=== PATIENT | female | born 2000 | race Caucasian/White ===

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

== ENCOUNTER 2020-08-29 23:37 | Emergency (ER) | payer OTHER ==
[~2020-08-29 23:37] MED LIST: BENTYL 10MG CAP10 MG PO; COLACE 100MG C100 MG PO; MACROBID 100 M100 MG PO; ZOFRAN4 MG PO
== END 2020-08-30 01:35 | disposition home or self-care (01) ==
LOC: ER1 23:37
DX: S51.812A Laceration without foreign body of left forearm, initial encounter (principal); Z23 Encounter for immunization; W25.XXXA Contact with sharp glass, initial encounter; Y92.009 Unspecified place in unspecified non-institutional (private) residence as the place of occurrence of the external cause
CPT/HCPCS: 12004; 90471; 90715; 99282

== ENCOUNTER 2020-10-17 17:57 | Emergency (ER) | payer OTHER ==
[2020-10-17] MEDS ORDERED: BACTRIM DS TAB1 EACH PO (18:23)
[2020-10-17] MEDS ORDERED: BACITRACIN-POLY15 G1 TP (18:23)
== END 2020-10-17 19:00 | disposition home or self-care (01) ==
LOC: ER1 17:57
DX: S61.512D Laceration without foreign body of left wrist, subsequent encounter (principal); L03.114 Cellulitis of left upper limb; X58.XXXD Exposure to other specified factors, subsequent encounter
CPT/HCPCS: 99281

== ENCOUNTER 2021-01-27 21:11 | Emergency (ER) | payer OTHER ==
[~2021-01-27 21:11] MED LIST changes: +BACITRACIN-POLY15 G1 TP; +BACTRIM DS TAB1 EACH PO
[2021-01-27] MEDS ORDERED: NAPROSYN500 MG PO (22:45)
== END 2021-01-27 22:51 | disposition home or self-care (01) ==
LOC: ER1 21:11
DX: S50.311A Abrasion of right elbow, initial encounter (principal); F17.200 Nicotine dependence, unspecified, uncomplicated; V86.99XA Unspecified occupant of other special all-terrain or other off-road motor vehicle injured in nontraffic accident, initial encounter; Y92.410 Unspecified street and highway as the place of occurrence of the external cause
CPT/HCPCS: 72072; 73060; 73080; 73090; 99283

== ENCOUNTER 2022-02-15 16:18 | Emergency (ER) | payer OTHER ==
[~2022-02-15 16:18] MED LIST changes: +NAPROSYN500 MG PO
[2022-02-15 16:51] LABS: HEMOGLOBIN 17.1 gm/dl (12.3-15.3); RED BLOOD COUNT 6.06 M/UL (4.00-5.10); WHITE BLOOD COUNT 8.9 K/UL (4.5-11.0)
[2022-02-15 17:16] LABS: BUN/CREATININE RATIO 7 (0-10)
[2022-02-15] MEDS ORDERED: IBUPROFEN800 MG PO (21:13)
== END 2022-02-15 21:23 | disposition home or self-care (01) ==
LOC: ER1 16:18
PROVIDERS: Preventive Medicine Occupational Medicine
DX: N83.202 Unspecified ovarian cyst, left side (principal)
CPT/HCPCS: 80053; 80307; 81001; 83690; 84703; 85025; 85652; 86140; 99284; Q9967